=== PATIENT | male | born 1980 | race Caucasian/White ===

== ENCOUNTER 2021-06-01 14:37 | Emergency (ER) | payer BC ==
[2021-06-01 15:25] LABS: RED BLOOD COUNT 5.42 M/UL (4.20-5.50); WHITE BLOOD COUNT 10.2 K/UL (4.5-11.0)
[2021-06-01 16:01] LABS: BUN/CREATININE RATIO 17 (0-10)
== END 2021-06-01 17:40 | disposition home or self-care (01) ==
LOC: ER1 14:37
PROVIDERS: Nurse Practitioner
DX: R10.31 Right lower quadrant pain (principal); R91.1 Solitary pulmonary nodule; F17.210 Nicotine dependence, cigarettes, uncomplicated
CPT/HCPCS: 80053; 81001; 85025; 96374; 96375; 99284; J2270; J2405; Q9967